=== PATIENT | female | born 1985 | race Caucasian/White ===

== ENCOUNTER 2016-12-28 07:47 | Inpatient (IN) | payer MEDICAID ==
[~2016-12-28] VITALS: Ht 170.2 cm; Wt 63.0 kg
[2016-12-28] MEDS ORDERED: MAALOX/HYOSCYAMINE/LIDOCAINE 45 ML BOTTLE ONE (08:13)
[2016-12-28] MEDS ORDERED: LORazepam 2 MG/ML, 1ML ONE (08:14)
[2016-12-28 08:28] LABS: BLOOD UREA NITROGEN 12 mg/dL (7-18)
[2016-12-28] MEDS ORDERED: PLEASE ENTER ALLERGIES MC SCH ×2 (08:30)
[2016-12-28] MEDS ORDERED: MAALOX/HYOSCYAMINE/LIDOCAINE 45 ML BOTTLE PO ONE (08:30)
[2016-12-28] MEDS ORDERED: LORazepam 2 MG/ML, 1ML IM PRN (08:30)
[2016-12-28 08:36] LABS: DIFF TOTAL CELLS COUNTED 100 CELL DIFF
[2016-12-28 08:44] LABS: LARGE PLATELETS 1+; POLYCHROMASIA 1+; VERIFY COUNTS? YES
[2016-12-28 08:48] LABS: IS PT STATUS REG ER OR PRE ER? YES
[2016-12-28] MEDS ORDERED: NS + 40MEQ KCL 1,000 ML IV SCH (09:00)
[2016-12-28] MEDS ORDERED: POTASSIUM CHLORIDE 20 MEQ TAB.ER.PRT PO ONE ×2 (09:00→11:30)
[2016-12-28 09:01] LABS: ICTOTEST NEGATIVE
[2016-12-28] MEDS ORDERED: POTASSIUM CHLORIDE 20 MEQ TAB.ER.PRT ONE (09:12)
[2016-12-28] MEDS ORDERED: CEFTRIAXONE PMX 1GM/50ML 50 ML IV ONE (09:30)
[2016-12-28] MEDS ORDERED: NS + 40MEQ KCL 1,000 ML IV ONE (09:37)
[2016-12-28] MEDS ORDERED: CEFTRIAXONE PMX 1GM/50ML 50 ML ONE (09:37)
[2016-12-28] MEDS ORDERED: POTASSIUM CHLORIDE 20 MEQ in SODIUM CHLORIDE 0.9% 1,000 ML IV ONE (09:54)
[2016-12-28] MEDS ORDERED: SODIUM CHLORIDE FLUSH 10ML SYR IVF PRN (10:00)
[2016-12-28] MEDS ORDERED: PERMETHRIN CRM 5%, 60GM TP SCH (10:00)
[2016-12-28] MEDS ORDERED: PIPERONYL BUTOXIDE/PYRETHRINS SHAMPOO ONE (10:10)
[2016-12-28] MEDS ORDERED: ONDANSETRON ODT 4 MG PO PRN (11:30)
[2016-12-28] MEDS: ENOXAPARIN 40 MG/0.4 ML SQ SCH ×2 (11:30→14:20)
[2016-12-28] MEDS ORDERED: ONDANSETRON 2MG/ML, 2ML IVP PRN (11:30)
[2016-12-28] MEDS: NICOTINE 7 MG/24 HR PATCH.TD24 TD SCH ×2 (11:30→14:20)
[2016-12-28] MEDS ORDERED: MAALOX/HYOSCYAMINE/LIDOCAINE 45 ML BOTTLE PO PRN (12:00)
[2016-12-28 12:19] VITALS: BP 113/63
[2016-12-28] MEDS ORDERED: OMNIPAQUE 350 MG/ML, 100ML BOTTLE ONE (12:36)
[2016-12-28 13:36] LABS: IS PT STATUS REG ER OR PRE ER? NO
[2016-12-28] MEDS: NS + 20MEQ KCL 1,000 ML IV SCH (14:20)
[2016-12-28 16:11] VITALS: BP 113/58
[2016-12-28] MEDS ORDERED: PERMETHRIN CRM 5%, 60GM TP ONE (16:15)
[2016-12-28] MEDS ORDERED: VANCOMYCIN PER PHARMACY MC PRN (16:30)
[2016-12-28] MEDS ORDERED: PHARMACOKINETIC MONITORING MC PRN (17:00)
[2016-12-28] MEDS ORDERED: PHARMACOKINETIC CONSULTATION MC ONE (17:00)
[2016-12-28 19:06] LABS: IS PT STATUS REG ER OR PRE ER? NO
[2016-12-28 20:01] VITALS: BP 115/66
[2016-12-28] MEDS: VANCOMYCIN 1,200 MG in SODIUM CHLORIDE 0.9% 250 ML IV SCH (20:18)
[2016-12-29] VITALS: BP 120/60
[2016-12-29] MEDS: NICOTINE 7 MG/24 HR PATCH.TD24 TD SCH ×2 (00:37→21:00)
[2016-12-29 01:40] LABS: DAU SCREEN DISCLAIMER
[2016-12-29 05:23] LABS: HEMOGLOBIN 10.3 g/dL (11.7-16.4)
[2016-12-29 05:30] LABS: BLOOD UREA NITROGEN 6 mg/dL (7-18)
[2016-12-29 05:34] LABS: ASPARTATE AMINO TRANSFERASE 16 U/L (15-37)
[2016-12-29 08:07] VITALS: BP 107/56
[2016-12-29] MEDS: VANCOMYCIN 1,200 MG in SODIUM CHLORIDE 0.9% 250 ML IV SCH ×2 (09:17→20:59)
[2016-12-29] MEDS ORDERED: LIDOCAINE 1%, 20ML ONE (09:40)
[2016-12-29] MEDS ORDERED: SODIUM BICARBONATE 4.2%, 5ML ONE (09:40)
[2016-12-29] MEDS ORDERED: POTASSIUM CHLORIDE 20 MEQ TAB.ER.PRT PO ONE (10:30)
[2016-12-29] MEDS: CEFTRIAXONE PMX 1GM/50ML 50 ML IV SCH (11:12)
[2016-12-29] MEDS: ASPIRIN 325 MG TABLET EC PO SCH (11:23)
[2016-12-29 13:16] VITALS: BP 118/71
[2016-12-29] MEDS: NS + 20MEQ KCL 1,000 ML IV SCH (13:38)
[2016-12-29 19:27] VITALS: BP 99/55
[2016-12-29] MEDS: HYDROcodone/APAP 5/325 TABLET PO PRN (21:19)
[2016-12-30 04:51] VITALS: BP 111/52
[2016-12-30 05:00] LABS: HEMOGLOBIN 9.8 g/dL (11.7-16.4)
[2016-12-30 05:07] LABS: BLOOD UREA NITROGEN 4 mg/dL (7-18)
[2016-12-30] MEDS: NS + 20MEQ KCL 1,000 ML IV SCH (06:12)
[2016-12-30] MEDS: ASPIRIN 325 MG TABLET EC PO SCH (06:12)
[2016-12-30 08:42] VITALS: BP 121/67
[2016-12-30] MEDS: VANCOMYCIN 1,200 MG in SODIUM CHLORIDE 0.9% 250 ML IV SCH ×2 (08:54→21:15)
[2016-12-30] MEDS: CEFTRIAXONE PMX 1GM/50ML 50 ML IV SCH (11:31)
[2016-12-30 14:01] VITALS: BP 128/70
[2016-12-30 19:37] VITALS: BP 131/65
[2016-12-30] MEDS: HYDROcodone/APAP 5/325 TABLET PO PRN (19:57)
[2016-12-31] MEDS: NS + 20MEQ KCL 1,000 ML IV SCH ×2 (00:34→15:16)
[2016-12-31] MEDS: MORPHINE SULFATE 4 MG/ML, 1ML IVPush PRN (00:35)
[2016-12-31 03:51] VITALS: BP 121/68
[2016-12-31] MEDS: HYDROcodone/APAP 5/325 TABLET PO PRN ×3 (04:04→20:11)
[2016-12-31] MEDS: ASPIRIN 325 MG TABLET EC PO SCH (04:04)
[2016-12-31 05:13] LABS: HEMOGLOBIN 9.5 g/dL (11.7-16.4)
[2016-12-31] MEDS: VANCOMYCIN 1,200 MG in SODIUM CHLORIDE 0.9% 250 ML IV SCH ×2 (08:19→20:11)
[2016-12-31 09:57] VITALS: BP 121/55
[2016-12-31] MEDS: CEFTRIAXONE PMX 1GM/50ML 50 ML IV SCH (11:02)
[2016-12-31] MEDS: NICOTINE 7 MG/24 HR PATCH.TD24 TD SCH (11:03)
[2016-12-31 17:29] VITALS: BP 128/72
[2016-12-31 20:00] VITALS: BP 131/58
[2017-01-01 02:00] VITALS: BP 126/75
[2017-01-01] MEDS: LORazepam 0.5MG TABLET PO PRN (02:28)
[2017-01-01] MEDS: NS + 20MEQ KCL 1,000 ML IV SCH ×2 (02:28→21:04)
[2017-01-01 05:08] LABS: HEMOGLOBIN 10.2 g/dL (11.7-16.4)
[2017-01-01 05:18] LABS: BLOOD UREA NITROGEN 5 mg/dL (7-18)
[2017-01-01 08:25] VITALS: BP 109/45
[2017-01-01] MEDS: VANCOMYCIN 1,200 MG in SODIUM CHLORIDE 0.9% 250 ML IV SCH ×2 (08:52→21:04)
[2017-01-01] MEDS ORDERED: PERMETHRIN CRM 5%, 60GM TP SCH (10:00)
[2017-01-01] MEDS: HYDROcodone/APAP 5/325 TABLET PO PRN (10:17)
[2017-01-01] MEDS: CEFTRIAXONE PMX 1GM/50ML 50 ML IV SCH (12:26)
[2017-01-01] MEDS: NICOTINE 7 MG/24 HR PATCH.TD24 TD SCH (12:27)
[2017-01-01] MEDS ORDERED: SCOPOLAMINE PATCH, 1.5MG PATCH.TD72 TD ONE (13:01)
[2017-01-01] MEDS ORDERED: SCOPOLAMINE PATCH, 1.5MG PATCH.TD72 TD STA (13:03)
[2017-01-01] MEDS ORDERED: FENTANYL PF 250 MCG/5ML ONE (13:06)
[2017-01-01] MEDS ORDERED: MIDAZOLAM 1 MG/ML, 5ML ONE (13:07)
[2017-01-01] MEDS ORDERED: BUPIVACAINE/PF-EPI 0.5% 1:200K ONE (13:46)
[2017-01-01] MEDS ORDERED: HYDROmorphone 1 MG/ML, 1ML IV PRN ×2 (14:00→14:30)
[2017-01-01] MEDS ORDERED: OXYcodone 5 MG/5 ML ORAL.SOL UDC PO PRN ×2 (14:00→14:30)
[2017-01-01] MEDS ORDERED: MIDAZOLAM 1 MG/ML, 2ML IV PRN ×2 (14:00→14:30)
[2017-01-01] MEDS ORDERED: PROMETHAZINE 25 MG/ML, 1ML IV PRN ×2 (14:00→14:30)
[2017-01-01] MEDS ORDERED: ACETAMINOPHEN 325 MG TABLET PO PRN ×2 (14:00→14:30)
[2017-01-01] MEDS ORDERED: FENTANYL PF 100 MCG/2ML IV PRN ×2 (14:00→14:30)
[2017-01-01] MEDS ORDERED: ONDANSETRON 2MG/ML, 2ML IVPush PRN ×2 (14:00→14:30)
[2017-01-01] MEDS ORDERED: KETOROLAC 30 MG/1 ML IV PRN ×2 (14:00→14:30)
[2017-01-01] MEDS ORDERED: BACITRACIN 50,000 UNIT ONE (14:05)
[2017-01-01] MEDS ORDERED: EPHEDRINE 50 MG/ML, 1ML IVPush PRN (14:30)
[2017-01-01] MEDS ORDERED: hydrALAzine 20 MG/ML, 1ML IV PRN (14:30)
[2017-01-01] MEDS ORDERED: METOPROLOL 1 MG/ML, 5ML IV PRN (14:30)
[2017-01-01] MEDS ORDERED: LABETALOL 5MG/ML, 20ML IV PRN (14:30)
[2017-01-01] MEDS ORDERED: MEPERIDINE/PF 25MG/0.5ML IVPush PRN (14:30)
[2017-01-01] MEDS ORDERED: PHENYLEPHRINE 10 MG/ML ONE (15:04)
[2017-01-01] MEDS ORDERED: NEOSTIGMINE 1 MG/ML, 10ML ONE (15:04)
[2017-01-01] MEDS ORDERED: ROCURONIUM 10 MG/ML ONE (15:04)
[2017-01-01] MEDS ORDERED: GLYCOPYRROLATE 0.2MG/1ML ONE (15:04)
[2017-01-01] MEDS ORDERED: PROPOFOL 10 MG/ML, 20ML ONE (15:04)
[2017-01-01] MEDS: MORPHINE SULFATE 4 MG/ML, 1ML IVPush PRN (17:12)
[2017-01-01 20:00] VITALS: BP 92/54
[2017-01-01] MEDS: ACETAMINOPHEN 325 MG TABLET PO PRN (21:23)
[2017-01-02 02:00] VITALS: BP 99/63
[2017-01-02] MEDS: HYDROcodone/APAP 5/325 TABLET PO PRN ×3 (06:07→21:47)
[2017-01-02 06:08] LABS: HEMOGLOBIN 10.1 g/dL (11.7-16.4)
[2017-01-02 06:13] LABS: ASPARTATE AMINO TRANSFERASE 11 U/L (15-37); BLOOD UREA NITROGEN 6 mg/dL (7-18)
[2017-01-02 07:59] VITALS: BP 85/46
[2017-01-02] MEDS: VANCOMYCIN 1,200 MG in SODIUM CHLORIDE 0.9% 250 ML IV SCH ×2 (08:02→21:55)
[2017-01-02] MEDS: NICOTINE 7 MG/24 HR PATCH.TD24 TD SCH (10:46)
[2017-01-02] MEDS: CEFTRIAXONE PMX 1GM/50ML 50 ML IV SCH (10:46)
[2017-01-02 12:55] VITALS: BP 92/52
[2017-01-02] MEDS: NS + 20MEQ KCL 1,000 ML IV SCH (13:05)
[2017-01-02] MEDS: MORPHINE SULFATE 4 MG/ML, 1ML IVPush PRN (13:27)
[2017-01-02 19:45] VITALS: BP 110/66
[2017-01-02] MEDS ORDERED: OMNIPAQUE 350 MG/ML, 100ML BOTTLE ONE (21:46)
[2017-01-02 23:44] VITALS: BP 107/64
[2017-01-03] MEDS: DOCUSATE 100 MG CAPSULE PO PRN ×2 (00:18→20:43)
[2017-01-03 03:11] VITALS: BP 99/53
[2017-01-03] MEDS: NS + 20MEQ KCL 1,000 ML IV SCH ×2 (03:14→20:40)
[2017-01-03] MEDS: HYDROcodone/APAP 5/325 TABLET PO PRN ×4 (03:47→20:40)
[2017-01-03 05:45] LABS: HEMOGLOBIN 8.8 g/dL (11.7-16.4)
[2017-01-03 05:56] LABS: BLOOD UREA NITROGEN 6 mg/dL (7-18)
[2017-01-03 06:02] LABS: ASPARTATE AMINO TRANSFERASE 12 U/L (15-37)
[2017-01-03 07:37] VITALS: BP 104/56
[2017-01-03] MEDS ORDERED: HYDROcodone/APAP 5/325 TABLET ONE (07:45)
[2017-01-03] MEDS: VANCOMYCIN 1,200 MG in SODIUM CHLORIDE 0.9% 250 ML IV SCH ×2 (10:14→23:06)
[2017-01-03] MEDS: CEFTRIAXONE PMX 1GM/50ML 50 ML IV SCH (12:03)
[2017-01-03] MEDS: NICOTINE 7 MG/24 HR PATCH.TD24 TD SCH (12:04)
[2017-01-03 14:00] VITALS: BP 103/54
[2017-01-03 18:53] VITALS: BP 110/65
[2017-01-04] MEDS: HYDROcodone/APAP 5/325 TABLET PO PRN ×5 (00:44→21:49)
[2017-01-04 01:06] VITALS: BP 112/67
[2017-01-04 07:04] LABS: HEMOGLOBIN 9.4 g/dL (11.7-16.4)
[2017-01-04 07:12] VITALS: BP 108/68
[2017-01-04 07:22] VITALS: BP 123/75
[2017-01-04 08:50] VITALS: BP_SYST 108; BP_SYST 123; BP_DIAS 63; BP_DIAS 75
[2017-01-04] MEDS: VANCOMYCIN 1,200 MG in SODIUM CHLORIDE 0.9% 250 ML IV SCH ×2 (10:06→21:48)
[2017-01-04] MEDS: NS + 20MEQ KCL 1,000 ML IV SCH (10:06)
[2017-01-04] MEDS: NICOTINE 7 MG/24 HR PATCH.TD24 TD SCH (11:02)
[2017-01-04] MEDS: LORazepam 0.5MG TABLET PO PRN ×2 (11:02→21:50)
[2017-01-04] MEDS: DOCUSATE 100 MG CAPSULE PO PRN ×2 (11:06→21:50)
[2017-01-04] MEDS: CEFTRIAXONE PMX 1GM/50ML 50 ML IV SCH (12:47)
[2017-01-04 13:45] VITALS: BP 106/60
[2017-01-04 22:41] VITALS: BP 95/52
[2017-01-05] MEDS: HYDROcodone/APAP 5/325 TABLET PO PRN ×4 (02:34→21:21)
[2017-01-05 02:37] VITALS: BP 102/58
[2017-01-05] MEDS: NS + 20MEQ KCL 1,000 ML IV SCH ×2 (02:54→12:30)
[2017-01-05 07:18] VITALS: BP 100/63
[2017-01-05] MEDS: LORazepam 0.5MG TABLET PO PRN ×2 (09:22→21:21)
[2017-01-05] MEDS: VANCOMYCIN 1,200 MG in SODIUM CHLORIDE 0.9% 250 ML IV SCH ×2 (09:58→22:49)
[2017-01-05] MEDS: DOCUSATE 100 MG CAPSULE PO PRN (12:30)
[2017-01-05] MEDS: CEFTRIAXONE PMX 1GM/50ML 50 ML IV SCH (12:30)
[2017-01-05] MEDS: NICOTINE 7 MG/24 HR PATCH.TD24 TD SCH (12:30)
[2017-01-05 13:05] VITALS: BP 91/54
[2017-01-05] MEDS: MORPHINE SULFATE 4 MG/ML, 1ML IVPush PRN (13:45)
[2017-01-05 20:22] VITALS: BP 91/50
[2017-01-06] MEDS: NS + 20MEQ KCL 1,000 ML IV SCH ×2 (00:51→22:18)
[2017-01-06 02:42] VITALS: BP 101/56
[2017-01-06 06:43] VITALS: BP 130/66
[2017-01-06] MEDS: VANCOMYCIN 1,200 MG in SODIUM CHLORIDE 0.9% 250 ML IV SCH (10:07)
[2017-01-06] MEDS: HYDROcodone/APAP 5/325 TABLET PO PRN ×3 (10:11→22:41)
[2017-01-06 13:31] VITALS: BP 99/49
[2017-01-06] MEDS: CEFTRIAXONE PMX 1GM/50ML 50 ML IV SCH (14:15)
[2017-01-06] MEDS: NICOTINE 7 MG/24 HR PATCH.TD24 TD SCH (14:15)
[2017-01-06 20:24] VITALS: BP 108/51
[2017-01-07] MEDS: VANCOMYCIN 1,200 MG in SODIUM CHLORIDE 0.9% 250 ML IV SCH ×2 (01:54→14:25)
[2017-01-07 02:46] VITALS: BP_SYST 85; BP_SYST 86; BP_DIAS 42
[2017-01-07 09:00] VITALS: BP 98/54
[2017-01-07] MEDS: MORPHINE SULFATE 4 MG/ML, 1ML IVPush PRN (09:20)
[2017-01-07] MEDS ORDERED: SODIUM CHLORIDE 0.9%, 500ML IVBOLUS ONE (09:30)
[2017-01-07 09:50] LABS: BLOOD UREA NITROGEN 6 mg/dL (7-18)
[2017-01-07 09:54] LABS: ASPARTATE AMINO TRANSFERASE 15 U/L (15-37)
[2017-01-07] MEDS ORDERED: PROMETHAZINE 25 MG/ML, 1ML IM ONE (10:30)
[2017-01-07] MEDS ORDERED: LORazepam 2 MG/ML, 1ML IVPush ONE (10:30)
[2017-01-07] MEDS: NICOTINE 7 MG/24 HR PATCH.TD24 TD SCH (11:45)
[2017-01-07] MEDS: CEFTRIAXONE PMX 1GM/50ML 50 ML IV SCH (13:20)
[2017-01-07] MEDS: DOCUSATE 100 MG CAPSULE PO PRN (14:27)
[2017-01-07 15:55] VITALS: BP 116/66
[2017-01-07] MEDS: NS + 20MEQ KCL 1,000 ML IV SCH (19:53)
[2017-01-07] MEDS: HYDROcodone/APAP 5/325 TABLET PO PRN (19:54)
[2017-01-07 20:20] VITALS: BP 104/59
[2017-01-08] MEDS: VANCOMYCIN 1,200 MG in SODIUM CHLORIDE 0.9% 250 ML IV SCH ×2 (02:06→19:59)
[2017-01-08 02:30] VITALS: BP 101/63
[2017-01-08 05:29] LABS: HEMOGLOBIN 10.3 g/dL (11.7-16.4)
[2017-01-08 05:46] LABS: BLOOD UREA NITROGEN 7 mg/dL (7-18)
[2017-01-08 07:51] VITALS: BP 107/56
[2017-01-08] MEDS: HYDROcodone/APAP 5/325 TABLET PO PRN ×2 (08:54→22:29)
[2017-01-08] MEDS: LORazepam 0.5MG TABLET PO PRN ×2 (13:21→22:29)
[2017-01-08] MEDS: MORPHINE SULFATE 4 MG/ML, 1ML IVPush PRN ×3 (13:21→22:29)
[2017-01-08] MEDS: CEFTRIAXONE PMX 1GM/50ML 50 ML IV SCH (13:21)
[2017-01-08] MEDS: NICOTINE 7 MG/24 HR PATCH.TD24 TD SCH (13:21)
[2017-01-08] MEDS: NS + 20MEQ KCL 1,000 ML IV SCH (13:22)
[2017-01-08 13:56] VITALS: BP 112/66
[2017-01-08] MEDS ORDERED: LORazepam 2 MG/ML, 1ML IVPush ONE ×2 (14:00→17:00)
[2017-01-08 19:00] VITALS: BP 110/72
[2017-01-08] MEDS ORDERED: GADOBUTROL 7.5 MMOL/7.5 ML PFS ONE (19:56)
[2017-01-09 01:00] VITALS: BP 73/42
[2017-01-09] MEDS: VANCOMYCIN 1,200 MG in SODIUM CHLORIDE 0.9% 250 ML IV SCH ×2 (08:06→20:13)
[2017-01-09 08:12] VITALS: BP 108/55
[2017-01-09] MEDS: MORPHINE SULFATE 4 MG/ML, 1ML IVPush PRN (08:39)
[2017-01-09] MEDS: LORazepam 0.5MG TABLET PO PRN (08:40)
[2017-01-09] MEDS ORDERED: BISACODYL 10 MG SUPP PR PRN (11:00)
[2017-01-09] MEDS: PIPERACILLIN/TAZO/PMX 3.375GM 50 ML IV SCH ×2 (13:04→18:43)
[2017-01-09 14:30] VITALS: BP 115/64
[2017-01-09] MEDS: NICOTINE 7 MG/24 HR PATCH.TD24 TD SCH (16:00)
[2017-01-09] MEDS: HYDROcodone/APAP 5/325 TABLET PO PRN (17:22)
[2017-01-09] MEDS: DOCUSATE 100 MG CAPSULE PO PRN (18:43)
[2017-01-09 21:30] VITALS: BP 125/75
[2017-01-09] MEDS: NS + 20MEQ KCL 1,000 ML IV SCH (23:57)
[2017-01-10] MEDS: PIPERACILLIN/TAZO/PMX 3.375GM 50 ML IV SCH ×4 (01:44→18:25)
[2017-01-10 02:14] VITALS: BP 107/62
[2017-01-10 05:21] LABS: HEMOGLOBIN 10.2 g/dL (11.7-16.4)
[2017-01-10 05:30] LABS: BLOOD UREA NITROGEN 9 mg/dL (7-18); C-REACTIVE PROTEIN, QUANT 0.15 mg/dL (0.02-0.49)
[2017-01-10] MEDS: VANCOMYCIN 1,200 MG in SODIUM CHLORIDE 0.9% 250 ML IV SCH ×2 (08:10→20:00)
[2017-01-10] MEDS: MORPHINE SULFATE 4 MG/ML, 1ML IVPush PRN (08:20)
[2017-01-10 08:22] VITALS: BP 108/62
[2017-01-10] MEDS ORDERED: FENTANYL PF 100 MCG/2ML ONE (14:16)
[2017-01-10] MEDS ORDERED: NALOXONE 1 MG/ML, 2ML ONE (14:17)
[2017-01-10] MEDS ORDERED: MIDAZOLAM 1 MG/ML, 5ML ONE (14:17)
[2017-01-10] MEDS ORDERED: FLUMAZENIL 0.1 MG/1 ML, 5ML ONE (14:17)
[2017-01-10] MEDS ORDERED: LIDOCAINE 1%, 20ML ONE (14:18)
[2017-01-10 15:40] VITALS: BP 118/68
[2017-01-10] MEDS: NICOTINE 7 MG/24 HR PATCH.TD24 TD SCH (16:33)
[2017-01-10 19:20] VITALS: BP 107/71
[2017-01-10] MEDS: ACETAMINOPHEN 325 MG TABLET PO PRN (20:09)
[2017-01-10] MEDS: DOCUSATE 100 MG CAPSULE PO PRN (20:09)
[2017-01-10] MEDS: NS + 20MEQ KCL 1,000 ML IV SCH (22:37)
[2017-01-11 01:10] VITALS: BP 116/58
[2017-01-11] MEDS: PIPERACILLIN/TAZO/PMX 3.375GM 50 ML IV SCH ×5 (01:12→21:19)
[2017-01-11] MEDS: HYDROcodone/APAP 5/325 TABLET PO PRN ×2 (01:12→11:10)
[2017-01-11 07:39] VITALS: BP 97/61
[2017-01-11] MEDS: VANCOMYCIN 1,200 MG in SODIUM CHLORIDE 0.9% 250 ML IV SCH ×2 (08:14→21:21)
[2017-01-11] MEDS ORDERED: [UNRECOGNIZED DRUG - REMARK] XX PRN (11:00)
[2017-01-11 12:02] LABS: HEMOGLOBIN 10.9 g/dL (11.7-16.4)
[2017-01-11 12:08] LABS: BLOOD UREA NITROGEN 8 mg/dL (7-18); C-REACTIVE PROTEIN, QUANT 0.21 mg/dL (0.02-0.49)
[2017-01-11 12:11] LABS: ASPARTATE AMINO TRANSFERASE 14 U/L (15-37)
[2017-01-11] MEDS: POTASSIUM CHLORIDE 20 MEQ TAB.ER.PRT PO SCH ×2 (12:51→15:33)
[2017-01-11] MEDS ORDERED: VANCOMYCIN 1,100 MG in SODIUM CHLORIDE 0.9% 250 ML IV SCH (14:00)
[2017-01-11 15:00] VITALS: BP 93/53
[2017-01-11] MEDS: NS + 20MEQ KCL 1,000 ML IV SCH (15:33)
[2017-01-11] MEDS: NICOTINE 7 MG/24 HR PATCH.TD24 TD SCH (15:35)
[2017-01-11 18:49] VITALS: BP 117/57
[2017-01-12] MEDS: PIPERACILLIN/TAZO/PMX 3.375GM 50 ML IV SCH ×4 (01:06→18:32)
[2017-01-12 01:12] VITALS: BP 92/49
[2017-01-12] MEDS ORDERED: CATHFLO-ALTEPLASE 2 MG/2 ML CATHFLUSH ONE ×2 (04:30→06:30)
[2017-01-12] MEDS: NS + 20MEQ KCL 1,000 ML IV SCH (06:48)
[2017-01-12 07:15] LABS: BLOOD UREA NITROGEN 7 mg/dL (7-18)
[2017-01-12 07:17] LABS: ASPARTATE AMINO TRANSFERASE 15 U/L (15-37); C-REACTIVE PROTEIN, QUANT 0.12 mg/dL (0.02-0.49)
[2017-01-12 07:27] VITALS: BP 114/67
[2017-01-12] MEDS: VANCOMYCIN 1,200 MG in SODIUM CHLORIDE 0.9% 250 ML IV SCH ×2 (08:12→20:13)
[2017-01-12] MEDS: HYDROcodone/APAP 5/325 TABLET PO PRN ×3 (08:17→22:00)
[2017-01-12 09:13] LABS: HEMOGLOBIN 10.7 g/dL (11.7-16.4)
[2017-01-12 12:40] VITALS: BP 111/70
[2017-01-12] MEDS: NICOTINE 7 MG/24 HR PATCH.TD24 TD SCH (15:56)
[2017-01-12 19:27] VITALS: BP 110/69
[2017-01-13] MEDS: PIPERACILLIN/TAZO/PMX 3.375GM 50 ML IV SCH ×4 (01:39→19:28)
[2017-01-13] MEDS: NS + 20MEQ KCL 1,000 ML IV SCH ×2 (01:39→21:23)
[2017-01-13 03:29] VITALS: BP 92/56
[2017-01-13 07:05] VITALS: BP 118/67
[2017-01-13] MEDS: VANCOMYCIN 1,200 MG in SODIUM CHLORIDE 0.9% 250 ML IV SCH ×2 (08:06→21:23)
[2017-01-13] MEDS: HYDROcodone/APAP 5/325 TABLET PO PRN ×2 (10:25→15:34)
[2017-01-13 13:37] VITALS: BP 116/55
[2017-01-13] MEDS: NICOTINE 7 MG/24 HR PATCH.TD24 TD SCH (15:34)
[2017-01-13 19:58] VITALS: BP 107/53
[2017-01-13] MEDS: ACETAMINOPHEN 325 MG TABLET PO PRN (21:32)
[2017-01-14] MEDS: PIPERACILLIN/TAZO/PMX 3.375GM 50 ML IV SCH ×4 (00:45→18:38)
[2017-01-14 01:58] VITALS: BP 112/66
[2017-01-14] MEDS: VANCOMYCIN 1,200 MG in SODIUM CHLORIDE 0.9% 250 ML IV SCH ×2 (09:19→21:05)
[2017-01-14 09:23] VITALS: BP 120/70
[2017-01-14] MEDS: NS + 20MEQ KCL 1,000 ML IV SCH (10:20)
[2017-01-14 12:03] LABS: HCG UR OBC PASS
[2017-01-14] MEDS ORDERED: BACITRACIN 50,000 UNIT ONE ×2 (13:36→14:59)
[2017-01-14] MEDS ORDERED: THROMBIN 5,000 UNIT VIAL TP ONE (13:36)
[2017-01-14] MEDS ORDERED: BACITRACIN OINT 500U/GM, 15 GM ONE (13:36)
[2017-01-14] MEDS ORDERED: BUPIVACAINE/PF-EPI 0.5% 1:200K ONE (13:36)
[2017-01-14] MEDS ORDERED: FENTANYL PF 250 MCG/5ML ONE (14:34)
[2017-01-14] MEDS ORDERED: MIDAZOLAM 1 MG/ML, 2ML ONE ×2 (14:34→16:07)
[2017-01-14] MEDS ORDERED: ROCURONIUM 10 MG/ML ONE (14:37)
[2017-01-14] MEDS ORDERED: ONDANSETRON 2MG/ML, 2ML ONE (14:37)
[2017-01-14] MEDS ORDERED: EPHEDRINE 50 MG/ML, 1ML ONE (14:37)
[2017-01-14] MEDS ORDERED: PROPOFOL 10 MG/ML, 20ML ONE (14:37)
[2017-01-14] MEDS ORDERED: PHENYLEPHRINE 10 MG/ML ONE (14:37)
[2017-01-14] MEDS ORDERED: DEXAMETHASONE 4 MG/ML, 1ML ONE (14:37)
[2017-01-14] MEDS ORDERED: CEFAZOLIN 1,000 MG ONE (14:37)
[2017-01-14] MEDS ORDERED: SUCCINYLCHOLINE 20 MG/ML, 10ML ONE (14:37)
[2017-01-14] MEDS ORDERED: GLYCOPYRROLATE 0.2MG/1ML ONE (14:37)
[2017-01-14] MEDS ORDERED: hydrALAzine 20 MG/ML, 1ML IV PRN (15:30)
[2017-01-14] MEDS ORDERED: ONDANSETRON 2MG/ML, 2ML IVPush PRN (15:30)
[2017-01-14] MEDS ORDERED: MEPERIDINE/PF 25MG/0.5ML IVPush PRN (15:30)
[2017-01-14] MEDS ORDERED: OXYcodone 5 MG/5 ML ORAL.SOL UDC PO PRN ×2 (15:30→19:00)
[2017-01-14] MEDS ORDERED: LABETALOL 5MG/ML, 20ML IV PRN (15:30)
[2017-01-14] MEDS ORDERED: PROMETHAZINE 25 MG/ML, 1ML IV PRN (15:30)
[2017-01-14] MEDS ORDERED: METOCLOPRAMIDE 5 MG/ML, 2ML IV PRN (15:30)
[2017-01-14] MEDS ORDERED: ACETAMINOPHEN 325 MG TABLET PO PRN (15:30)
[2017-01-14] MEDS ORDERED: FENTANYL PF 100 MCG/2ML IV PRN (15:30)
[2017-01-14] MEDS ORDERED: MIDAZOLAM 1 MG/ML, 2ML IV PRN (15:30)
[2017-01-14] MEDS ORDERED: HYDROmorphone 2 MG/ML, 1ML ONE (16:07)
[2017-01-14] MEDS ORDERED: OXYcodone 5 MG/5 ML ORAL.SOL UDC ONE (16:07)
[2017-01-14] MEDS: HYDROmorphone 1 MG/ML, 1ML IV PRN ×3 (16:16→17:10)
[2017-01-14] MEDS: NICOTINE 7 MG/24 HR PATCH.TD24 TD SCH (18:38)
[2017-01-14] MEDS ORDERED: ONDANSETRON 2MG/ML, 2ML IV PRN (19:00)
[2017-01-14 20:10] VITALS: BP 96/62
[2017-01-14] MEDS: POTASSIUM CHLORIDE 40 MEQ in SODIUM CHLORIDE 0.9% 1,000 ML IV SCH (21:05)
[2017-01-15 00:16] VITALS: BP 98/58
[2017-01-15] MEDS: PIPERACILLIN/TAZO/PMX 3.375GM 50 ML IV SCH ×4 (00:51→20:32)
[2017-01-15] MEDS ORDERED: CATHFLO-ALTEPLASE 2 MG/2 ML CATHFLUSH ONE (06:30)
[2017-01-15 07:13] LABS: HEMOGLOBIN 7.6 g/dL (11.7-16.4)
[2017-01-15 07:26] LABS: BLOOD UREA NITROGEN 9 mg/dL (7-18)
[2017-01-15] MEDS: VANCOMYCIN 1,200 MG in SODIUM CHLORIDE 0.9% 250 ML IV SCH ×2 (09:33→22:23)
[2017-01-15 09:55] VITALS: BP 92/55
[2017-01-15 14:00] VITALS: BP 102/61
[2017-01-15] MEDS: POTASSIUM CHLORIDE 40 MEQ in SODIUM CHLORIDE 0.9% 1,000 ML IV SCH (14:16)
[2017-01-15] MEDS: NICOTINE 7 MG/24 HR PATCH.TD24 TD SCH (17:07)
[2017-01-15] MEDS: HYDROcodone/APAP 5/325 TABLET PO PRN (18:12)
[2017-01-15 19:50] VITALS: BP 92/52
[2017-01-16] MEDS: PIPERACILLIN/TAZO/PMX 3.375GM 50 ML IV SCH ×4 (02:24→22:29)
[2017-01-16 03:24] VITALS: BP 105/65
[2017-01-16] MEDS ORDERED: CATHFLO-ALTEPLASE 2 MG/2 ML CATHFLUSH ONE ×2 (05:00)
[2017-01-16 07:13] VITALS: BP 95/56
[2017-01-16 07:22] LABS: HEMOGLOBIN 8.4 g/dL (11.7-16.4)
[2017-01-16] MEDS: POTASSIUM CHLORIDE 40 MEQ in SODIUM CHLORIDE 0.9% 1,000 ML IV SCH ×2 (07:34→22:31)
[2017-01-16] MEDS: HYDROcodone/APAP 5/325 TABLET PO PRN ×3 (08:53→18:18)
[2017-01-16] MEDS: LORazepam 0.5MG TABLET PO PRN ×2 (10:18→16:27)
[2017-01-16] MEDS: MORPHINE SULFATE 4 MG/ML, 1ML IVPush PRN ×2 (10:18→14:52)
[2017-01-16] MEDS: VANCOMYCIN 1,200 MG in SODIUM CHLORIDE 0.9% 250 ML IV SCH ×2 (10:19→23:34)
[2017-01-16 13:45] VITALS: BP 98/63
[2017-01-16] MEDS: NICOTINE 7 MG/24 HR PATCH.TD24 TD SCH (16:27)
[2017-01-16 19:06] VITALS: BP 94/60
[2017-01-17 02:32] VITALS: BP 89/74
[2017-01-17] MEDS: PIPERACILLIN/TAZO/PMX 3.375GM 50 ML IV SCH ×4 (05:07→23:13)
[2017-01-17] MEDS: POTASSIUM CHLORIDE 40 MEQ in SODIUM CHLORIDE 0.9% 1,000 ML IV SCH ×2 (06:42→19:23)
[2017-01-17 07:51] VITALS: BP 109/55
[2017-01-17 13:36] VITALS: BP 111/69
[2017-01-17] MEDS: VANCOMYCIN 1,000 MG in SODIUM CHLORIDE 0.9% 250 ML IV SCH (14:47)
[2017-01-17] MEDS: NICOTINE 7 MG/24 HR PATCH.TD24 TD SCH (17:02)
[2017-01-17 18:53] VITALS: BP 115/74
[2017-01-17] MEDS: HYDROcodone/APAP 5/325 TABLET PO PRN (19:33)
[2017-01-18 01:44] VITALS: BP 109/69
[2017-01-18] MEDS: VANCOMYCIN 1,000 MG in SODIUM CHLORIDE 0.9% 250 ML IV SCH ×2 (02:33→14:34)
[2017-01-18] MEDS: PIPERACILLIN/TAZO/PMX 3.375GM 50 ML IV SCH ×4 (04:58→23:32)
[2017-01-18 09:30] VITALS: BP 111/64
[2017-01-18] MEDS: POTASSIUM CHLORIDE 40 MEQ in SODIUM CHLORIDE 0.9% 1,000 ML IV SCH (09:54)
[2017-01-18] MEDS: HYDROcodone/APAP 5/325 TABLET PO PRN ×2 (14:47→20:14)
[2017-01-18 15:16] VITALS: BP 111/75
[2017-01-18] MEDS: NICOTINE 7 MG/24 HR PATCH.TD24 TD SCH (17:39)
[2017-01-18 20:47] VITALS: BP 115/72
[2017-01-19 04:19] VITALS: BP 110/59
[2017-01-19 06:08] LABS: BLOOD UREA NITROGEN 7 mg/dL (7-18)
[2017-01-19] MEDS: PIPERACILLIN/TAZO/PMX 3.375GM 50 ML IV SCH ×4 (06:14→23:03)
[2017-01-19 06:20] LABS: ASPARTATE AMINO TRANSFERASE 15 U/L (15-37)
[2017-01-19 06:33] LABS: HEMOGLOBIN 7.3 g/dL (11.7-16.4)
[2017-01-19 07:36] VITALS: BP 108/66
[2017-01-19] MEDS: VANCOMYCIN 1,200 MG in SODIUM CHLORIDE 0.9% 250 ML IV SCH (08:32)
[2017-01-19] MEDS: MORPHINE SULFATE 4 MG/ML, 1ML IVPush PRN (11:14)
[2017-01-19 14:23] VITALS: BP 103/62
[2017-01-19] MEDS: NICOTINE 7 MG/24 HR PATCH.TD24 TD SCH (15:37)
[2017-01-19 19:03] VITALS: BP 108/74
[2017-01-19] MEDS: HYDROcodone/APAP 5/325 TABLET PO PRN (20:17)
[2017-01-19] MEDS: ACETAMINOPHEN 325 MG TABLET PO PRN (23:08)
[2017-01-20 03:08] VITALS: BP 95/50
[2017-01-20] MEDS: PIPERACILLIN/TAZO/PMX 3.375GM 50 ML IV SCH ×3 (04:50→20:15)
[2017-01-20 06:54] LABS: BLOOD UREA NITROGEN 8 mg/dL (7-18)
[2017-01-20 07:55] VITALS: BP 119/67
[2017-01-20] MEDS ORDERED: POTASSIUM CHLORIDE 20 MEQ TAB.ER.PRT PO ONE (08:00)
[2017-01-20] MEDS: VANCOMYCIN 1,200 MG in SODIUM CHLORIDE 0.9% 250 ML IV SCH (09:00)
[2017-01-20] MEDS ORDERED: DAPTOMYCIN 250 MG in SODIUM CHLORIDE 0.9% 100 ML IV SCH (11:00)
[2017-01-20] MEDS ORDERED: ZIPRASIDONE 20MG CAPSULE PO PRN (12:30)
[2017-01-20] MEDS ORDERED: ZIPRASIDONE 20 MG INJ IM PRN (12:30)
[2017-01-20] MEDS: FERROUS SULFATE 325 MG TABLET PO SCH ×2 (13:24→20:15)
[2017-01-20] MEDS: NICOTINE 7 MG/24 HR PATCH.TD24 TD SCH (13:24)
[2017-01-20 15:08] VITALS: BP 102/63
[2017-01-20 21:00] VITALS: BP 117/82
[2017-01-21] MEDS: HYDROcodone/APAP 5/325 TABLET PO PRN ×2 (00:17→09:56)
[2017-01-21] MEDS: PIPERACILLIN/TAZO/PMX 3.375GM 50 ML IV SCH ×4 (02:08→23:45)
[2017-01-21 02:50] VITALS: BP 107/66
[2017-01-21 05:40] LABS: HEMOGLOBIN 7.4 g/dL (11.7-16.4)
[2017-01-21 05:49] LABS: BLOOD UREA NITROGEN 8 mg/dL (7-18)
[2017-01-21 05:55] LABS: ASPARTATE AMINO TRANSFERASE 12 U/L (15-37)
[2017-01-21] MEDS: FERROUS SULFATE 325 MG TABLET PO SCH ×3 (07:54→20:31)
[2017-01-21 08:06] VITALS: BP 103/65
[2017-01-21 13:43] VITALS: BP 121/75
[2017-01-21] MEDS: DAPTOMYCIN 250 MG in SODIUM CHLORIDE 0.9% 100 ML IV SCH (15:25)
[2017-01-21] MEDS: NICOTINE 7 MG/24 HR PATCH.TD24 TD SCH (17:05)
[2017-01-21 22:24] VITALS: BP 130/72
[2017-01-22 04:10] VITALS: BP 90/54
[2017-01-22] MEDS: PIPERACILLIN/TAZO/PMX 3.375GM 50 ML IV SCH ×4 (05:04→23:00)
[2017-01-22 06:56] VITALS: BP 96/61
[2017-01-22 08:40] LABS: HEMOGLOBIN 8.1 g/dL (11.7-16.4)
[2017-01-22 08:55] LABS: BLOOD UREA NITROGEN 9 mg/dL (7-18)
[2017-01-22] MEDS: FERROUS SULFATE 325 MG TABLET PO SCH ×3 (09:16→17:44)
[2017-01-22] MEDS ORDERED: POTASSIUM CHLORIDE 20 MEQ TAB.ER.PRT PO ONE (10:00)
[2017-01-22] MEDS: DAPTOMYCIN 250 MG in SODIUM CHLORIDE 0.9% 100 ML IV SCH (12:08)
[2017-01-22 14:07] VITALS: BP 108/69
[2017-01-22] MEDS: NICOTINE 7 MG/24 HR PATCH.TD24 TD SCH (17:44)
[2017-01-22 21:35] VITALS: BP 115/74
[2017-01-23 02:50] VITALS: BP 117/65
[2017-01-23 04:46] LABS: BLOOD UREA NITROGEN 9 mg/dL (7-18)
[2017-01-23] MEDS: PIPERACILLIN/TAZO/PMX 3.375GM 50 ML IV SCH (05:18)
[2017-01-23] MEDS ORDERED: MAGNESIUM SULFATE PMX 4GM/100M 100 ML IV ONE (07:30)
[2017-01-23] MEDS: POTASSIUM CHLORIDE 20 MEQ TAB.ER.PRT PO SCH ×2 (09:12→16:16)
[2017-01-23] MEDS: FERROUS SULFATE 325 MG TABLET PO SCH ×3 (09:12→16:15)
[2017-01-23 09:22] VITALS: BP 122/68
[2017-01-23 15:17] VITALS: BP 117/77
[2017-01-23] MEDS: NICOTINE 7 MG/24 HR PATCH.TD24 TD SCH (16:15)
[2017-01-23 20:30] VITALS: BP 117/80
[2017-01-24] MEDS: POTASSIUM CHLORIDE 20 MEQ TAB.ER.PRT PO SCH ×2 (00:40→17:22)
[2017-01-24 02:20] VITALS: BP 135/91
[2017-01-24] MEDS: ACETAMINOPHEN 325 MG TABLET PO PRN (02:31)
[2017-01-24] MEDS ORDERED: CATHFLO-ALTEPLASE 2 MG/2 ML CATHFLUSH ONE ×2 (05:30)
[2017-01-24 06:17] LABS: BLOOD UREA NITROGEN 8 mg/dL (7-18)
[2017-01-24 06:24] LABS: HEMOGLOBIN 8.1 g/dL (11.7-16.4)
[2017-01-24] MEDS: FERROUS SULFATE 325 MG TABLET PO SCH ×3 (07:45→17:22)
[2017-01-24] MEDS: HYDROcodone/APAP 5/325 TABLET PO PRN ×2 (07:49→22:07)
[2017-01-24 08:50] VITALS: BP 112/73
[2017-01-24 14:40] VITALS: BP 114/78
[2017-01-24] MEDS: NICOTINE 7 MG/24 HR PATCH.TD24 TD SCH (17:22)
[2017-01-24 19:53] VITALS: BP 126/81
[2017-01-25 01:16] VITALS: BP 124/79
[2017-01-25] MEDS ORDERED: CATHFLO-ALTEPLASE 2 MG/2 ML CATHFLUSH ONE ×2 (05:00→06:00)
[2017-01-25 05:12] LABS: BLOOD UREA NITROGEN 11 mg/dL (7-18)
[2017-01-25 07:07] VITALS: BP 121/77
[2017-01-25] MEDS: POTASSIUM CHLORIDE 20 MEQ TAB.ER.PRT PO SCH ×2 (07:53→17:18)
[2017-01-25] MEDS: FERROUS SULFATE 325 MG TABLET PO SCH ×3 (07:53→17:18)
[2017-01-25 14:18] VITALS: BP 124/79
[2017-01-25] MEDS: NICOTINE 7 MG/24 HR PATCH.TD24 TD SCH (15:35)
[2017-01-25 20:04] VITALS: BP 123/73
[2017-01-25 22:19] LABS: HEMOGLOBIN 9.7 g/dL (11.7-16.4)
[2017-01-25] MEDS: ACETAMINOPHEN 325 MG TABLET PO PRN (23:33)
[2017-01-26 01:48] VITALS: BP 106/69
[2017-01-26 04:27] VITALS: BP 105/73
[2017-01-26] MEDS ORDERED: OMNIPAQUE 350 MG/ML, 100ML BOTTLE ONE (04:39)
[2017-01-26 07:44] VITALS: BP 114/75
[2017-01-26] MEDS: FERROUS SULFATE 325 MG TABLET PO SCH ×3 (08:03→17:02)
[2017-01-26] MEDS: POTASSIUM CHLORIDE 20 MEQ TAB.ER.PRT PO SCH ×2 (08:03→17:02)
[2017-01-26] MEDS: HYDROcodone/APAP 5/325 TABLET PO PRN ×2 (08:10→21:42)
[2017-01-26] MEDS: MORPHINE SULFATE 4 MG/ML, 1ML IVPush PRN (10:37)
[2017-01-26 14:19] VITALS: BP 109/71
[2017-01-26] MEDS: NICOTINE 7 MG/24 HR PATCH.TD24 TD SCH (17:02)
[2017-01-26 19:32] VITALS: BP 110/68
[2017-01-27 02:34] VITALS: BP 103/64
[2017-01-27 07:20] LABS: HEMOGLOBIN 8.7 g/dL (11.7-16.4)
[2017-01-27 07:39] LABS: DIFF TOTAL CELLS COUNTED 100 CELL DIFF
[2017-01-27 07:42] LABS: VERIFY COUNTS? YES
[2017-01-27 07:43] LABS: ANISOCYTOSIS 1+
[2017-01-27 07:44] LABS: OVALOCYTES 1+
[2017-01-27 07:49] LABS: LARGE PLATELETS 1+
[2017-01-27 08:11] VITALS: BP 117/76
[2017-01-27] MEDS: POTASSIUM CHLORIDE 20 MEQ TAB.ER.PRT PO SCH (08:22)
[2017-01-27] MEDS: FERROUS SULFATE 325 MG TABLET PO SCH ×3 (08:22→17:10)
[2017-01-27 12:21] LABS: HEMOGLOBIN 8.9 g/dL (11.7-16.4)
[2017-01-27 13:22] LABS: DIFF TOTAL CELLS COUNTED 100 CELL DIFF
[2017-01-27 13:28] LABS: ANISOCYTOSIS 1+; HYPOCHROMIA 1+; VERIFY COUNTS? YES
[2017-01-27 14:46] VITALS: BP 112/73
[2017-01-27] MEDS: NICOTINE 7 MG/24 HR PATCH.TD24 TD SCH (17:10)
[2017-01-27 19:56] VITALS: BP 114/66
[2017-01-28 02:04] VITALS: BP 118/65
[2017-01-28] MEDS: HYDROcodone/APAP 5/325 TABLET PO PRN (06:28)
[2017-01-28 08:05] VITALS: BP 98/62
[2017-01-28] MEDS: FERROUS SULFATE 325 MG TABLET PO SCH ×3 (08:16→16:37)
[2017-01-28 10:57] LABS: BLOOD UREA NITROGEN 16 mg/dL (7-18)
[2017-01-28] MEDS ORDERED: FUROSEMIDE 20 MG/2 ML IV ONE (11:30)
[2017-01-28 14:39] VITALS: BP 118/86
[2017-01-28] MEDS: NICOTINE 7 MG/24 HR PATCH.TD24 TD SCH (16:37)
[2017-01-28 19:12] VITALS: BP 110/69
[2017-01-29 01:53] VITALS: BP 102/69
[2017-01-29 08:07] VITALS: BP 112/68
[2017-01-29] MEDS: POTASSIUM CHLORIDE 20 MEQ TAB.ER.PRT PO SCH (08:30)
[2017-01-29] MEDS: FERROUS SULFATE 325 MG TABLET PO SCH ×3 (08:30→16:49)
[2017-01-29] MEDS: FUROSEMIDE 20 MG/2 ML IV SCH (08:31)
[2017-01-29 13:59] VITALS: BP 105/56
[2017-01-29] MEDS: NICOTINE 7 MG/24 HR PATCH.TD24 TD SCH (16:49)
[2017-01-29 22:37] VITALS: BP 118/74
[2017-01-30 01:54] VITALS: BP 114/63
[2017-01-30] MEDS ORDERED: BUPIVACAINE/PF-EPI 0.5% 1:200K ONE (06:58)
[2017-01-30] MEDS ORDERED: BACITRACIN OINT 500U/GM, 15 GM ONE (06:58)
[2017-01-30] MEDS ORDERED: THROMBIN 5,000 UNIT VIAL TP ONE (06:59)
[2017-01-30] MEDS ORDERED: BACITRACIN 50,000 UNIT ONE (06:59)
[2017-01-30] MEDS: FUROSEMIDE 20 MG/2 ML IV SCH (08:41)
[2017-01-30] MEDS: FERROUS SULFATE 325 MG TABLET PO SCH ×4 (08:41→16:44)
[2017-01-30] MEDS: POTASSIUM CHLORIDE 20 MEQ TAB.ER.PRT PO SCH ×2 (08:41→08:42)
[2017-01-30 09:30] VITALS: BP 106/72
[2017-01-30] MEDS ORDERED: MIDAZOLAM 1 MG/ML, 2ML ONE (10:38)
[2017-01-30] MEDS ORDERED: FENTANYL PF 250 MCG/5ML ONE (10:38)
[2017-01-30 12:34] LABS: HCG UR OBC PASS
[2017-01-30] MEDS ORDERED: HYDROmorphone 1 MG/ML, 1ML IV PRN (13:00)
[2017-01-30] MEDS ORDERED: ONDANSETRON 2MG/ML, 2ML IVPush PRN (13:00)
[2017-01-30] MEDS ORDERED: ACETAMINOPHEN 325 MG TABLET PO PRN (13:00)
[2017-01-30] MEDS ORDERED: OXYcodone 5 MG/5 ML ORAL.SOL UDC PO PRN (13:00)
[2017-01-30] MEDS ORDERED: FENTANYL PF 100 MCG/2ML IV PRN (13:00)
[2017-01-30] MEDS ORDERED: ONDANSETRON 2MG/ML, 2ML ONE (13:08)
[2017-01-30] MEDS ORDERED: PROPOFOL 10 MG/ML, 20ML ONE (13:08)
[2017-01-30] MEDS ORDERED: GLYCOPYRROLATE 0.2MG/1ML ONE (13:08)
[2017-01-30] MEDS ORDERED: DEXAMETHASONE 4 MG/ML, 1ML ONE (13:08)
[2017-01-30] MEDS ORDERED: NEOSTIGMINE 1 MG/ML, 10ML ONE (13:08)
[2017-01-30] MEDS ORDERED: ROCURONIUM 10 MG/ML ONE (13:08)
[2017-01-30] MEDS ORDERED: BACITRACIN 50,000 UNIT IRRIG ONE (13:53)
[2017-01-30] MEDS: HYDROcodone/APAP 5/325 TABLET PO PRN (14:57)
[2017-01-30 15:01] VITALS: BP 115/73
[2017-01-30] MEDS: NICOTINE 7 MG/24 HR PATCH.TD24 TD SCH (16:44)
[2017-01-30 19:22] VITALS: BP 121/65
[2017-01-31 00:37] VITALS: BP 103/66
[2017-01-31] MEDS: HYDROcodone/APAP 5/325 TABLET PO PRN ×2 (01:02→14:06)
[2017-01-31 03:49] VITALS: BP 114/73
[2017-01-31 06:35] LABS: BLOOD UREA NITROGEN 24 mg/dL (7-18)
[2017-01-31 06:48] LABS: HEMOGLOBIN 10.1 g/dL (11.7-16.4)
[2017-01-31 06:52] VITALS: BP 115/72
[2017-01-31] MEDS: FERROUS SULFATE 325 MG TABLET PO SCH ×3 (09:35→16:22)
[2017-01-31] MEDS: POTASSIUM CHLORIDE 20 MEQ TAB.ER.PRT PO SCH (09:35)
[2017-01-31] MEDS: FUROSEMIDE 20 MG/2 ML IV SCH (09:41)
[2017-01-31 13:22] VITALS: BP 119/76
[2017-01-31] MEDS: NICOTINE 7 MG/24 HR PATCH.TD24 TD SCH (16:22)
[2017-01-31 19:39] VITALS: BP 108/73
[2017-02-01 02:10] VITALS: BP 113/73
[2017-02-01 07:53] VITALS: BP 107/69
[2017-02-01] MEDS: FERROUS SULFATE 325 MG TABLET PO SCH ×3 (08:00→17:00)
[2017-02-01 12:42] VITALS: BP 118/81
[2017-02-01] MEDS: MICAFUNGIN 100 MG in SODIUM CHLORIDE 0.9% 100 ML IV SCH (13:43)
[2017-02-01] MEDS: NICOTINE 7 MG/24 HR PATCH.TD24 TD SCH (16:00)
[2017-02-01 20:12] VITALS: BP 119/74
[2017-02-01] MEDS: HYDROcodone/APAP 5/325 TABLET PO PRN (20:35)
[2017-02-02 03:00] VITALS: BP 133/77
[2017-02-02 06:27] LABS: HEMOGLOBIN 8.5 g/dL (11.7-16.4)
[2017-02-02 06:37] LABS: ASPARTATE AMINO TRANSFERASE 42 U/L (15-37); BLOOD UREA NITROGEN 22 mg/dL (7-18)
[2017-02-02 07:07] VITALS: BP 122/74
[2017-02-02] MEDS: FERROUS SULFATE 325 MG TABLET PO SCH ×3 (07:35→16:03)
[2017-02-02] MEDS: MICAFUNGIN 100 MG in SODIUM CHLORIDE 0.9% 100 ML IV SCH (11:01)
[2017-02-02] MEDS: MORPHINE SULFATE 4 MG/ML, 1ML IVPush PRN (11:31)
[2017-02-02 12:30] VITALS: BP 125/71
[2017-02-02] MEDS: NICOTINE 7 MG/24 HR PATCH.TD24 TD SCH (16:03)
[2017-02-02 19:05] VITALS: BP 127/82
[2017-02-03 01:58] VITALS: BP 125/75
[2017-02-03 07:17] VITALS: BP 118/73
[2017-02-03] MEDS: LORazepam 0.5MG TABLET PO PRN (09:11)
[2017-02-03] MEDS: FERROUS SULFATE 325 MG TABLET PO SCH ×3 (09:11→15:59)
[2017-02-03] MEDS: HYDROcodone/APAP 5/325 TABLET PO PRN (09:11)
[2017-02-03] MEDS: FLUCONAZOLE 200 MG TABLET PO SCH (11:32)
[2017-02-03] MEDS: MORPHINE SULFATE 4 MG/ML, 1ML IVPush PRN (11:33)
[2017-02-03 13:27] VITALS: BP 109/74
[2017-02-03] MEDS: NICOTINE 7 MG/24 HR PATCH.TD24 TD SCH (16:00)
[2017-02-03 19:14] VITALS: BP 114/79
[2017-02-04 02:41] VITALS: BP 112/68
[2017-02-04 07:27] VITALS: BP 133/88
[2017-02-04] MEDS: FERROUS SULFATE 325 MG TABLET PO SCH ×3 (08:23→16:58)
[2017-02-04] MEDS: FLUCONAZOLE 200 MG TABLET PO SCH (08:23)
[2017-02-04 13:23] VITALS: BP 134/86
[2017-02-04] MEDS: NICOTINE 7 MG/24 HR PATCH.TD24 TD SCH (16:59)
[2017-02-04 18:53] VITALS: BP 125/79
[2017-02-05 02:15] VITALS: BP 111/77
[2017-02-05 07:43] VITALS: BP 135/79
[2017-02-05] MEDS: FLUCONAZOLE 200 MG TABLET PO SCH (09:01)
[2017-02-05] MEDS: FERROUS SULFATE 325 MG TABLET PO SCH ×2 (09:01→14:32)
[2017-02-05] MEDS: MORPHINE SULFATE 4 MG/ML, 1ML IVPush PRN (10:44)
[2017-02-05] MEDS ORDERED: FERR325T20 PO (13:36)
[2017-02-05] MEDS ORDERED: ACET325T14 PO (13:36)
[2017-02-05] MEDS ORDERED: FLUC200T PO (13:36)
[2017-02-05] MEDS ORDERED: ALPR0.25 PO (13:36)
[2017-02-05 14:09] VITALS: BP 119/77
== END 2017-02-05 16:14 | DRG 853 ==
LOC: ED 09:38 → EDIP 09:55 → 4WST 12:03 → 4NOR 01-02 16:53
PROVIDERS: ADMIT Internal Medicine; ATTEND Internal Medicine
PROC: 0T9B70Z Drainage of Bladder with Drainage Device, Via Natural or Artificial Opening (ICD-10-PCS; 2016-12-28)
PROC: 0K9 Muscles, Drainage (ICD-10-PCS; 2016-12-29)
PROC: 0JB50ZZ Excision of Left Neck Subcutaneous Tissue and Fascia, Open Approach (ICD-10-PCS; 2017-01-01)
PROC: 0W9630Z Drainage of Neck with Drainage Device, Percutaneous Approach (ICD-10-PCS; 2017-01-01)
PROC: B546ZZA Ultrasonography of Right Subclavian Vein, Guidance (ICD-10-PCS; 2017-01-08)
PROC: B5161ZA Fluoroscopy of Right Subclavian Vein using Low Osmolar Contrast, Guidance (ICD-10-PCS; 2017-01-08)
PROC: 05H533Z Insertion of Infusion Device into Right Subclavian Vein, Percutaneous Approach (ICD-10-PCS; 2017-01-08)
PROC: 0WJ63ZZ Inspection of Neck, Percutaneous Approach (ICD-10-PCS; 2017-01-10)
PROC: 0K920ZZ Drainage of Right Neck Muscle, Open Approach (ICD-10-PCS; 2017-01-14)
PROC: 0K930ZZ Drainage of Left Neck Muscle, Open Approach (ICD-10-PCS; principal; 2017-01-14 14:30)
PROC: 0KB30ZZ Excision of Left Neck Muscle, Open Approach (ICD-10-PCS; 2017-01-30)
DX: A41.9 Sepsis, unspecified organism (principal); E43 Unspecified severe protein-calorie malnutrition; E87.1 Hypo-osmolality and hyponatremia; M60.08 Infective myositis, other site; B49 Unspecified mycosis; L03.221 Cellulitis of neck; E87.6 Hypokalemia; R07.89 Other chest pain; B85.0 Pediculosis due to Pediculus humanus capitis; N30.90 Cystitis, unspecified without hematuria; B96.20 Unspecified Escherichia coli [E. coli] as the cause of diseases classified elsewhere; L65.9 Nonscarring hair loss, unspecified; E04.2 Nontoxic multinodular goiter; D50.9 Iron deficiency anemia, unspecified; N18.2 Chronic kidney disease, stage 2 (mild); E83.42 Hypomagnesemia; F17.210 Nicotine dependence, cigarettes, uncomplicated; Z59.0 Homelessness; Z87.442 Personal history of urinary calculi; Z71.6 Tobacco abuse counseling; Z91.19 Patient's noncompliance with other medical treatment and regimen; Z68.21 Body mass index [BMI] 21.0-21.9, adult
CPT/HCPCS: 10160; 36415; 36569; 70491; 70543; 70553; 71010; 71275; 75989; 76770; 76937; 76942; 77001; 80048; 80053; 80061; 80202; 80307; 81001; 81025; 82040; 82550; 82607; 82746; 83540; 83550; 83605; 83690; 83735; 84132; 84439; 84443; 84484; 85014; 85018; 85025; 85379; 85610; 85651; 85730; 86140; 86850; 86900; 86923; 87015; 87040; 87070; 87075; 87077; 87086; 87102; 87106; 87116; 87176; 87186; 87205; 87206; 88304; 93005; 93306; 93970; 96365; 96366; 96368; 96372; A9585; C1713; J0690; J0696; J0878; J1100; J1170; J1650; J2248; J2250; J2270; J2405; J2543; J2704; J2710; J2997; J3010; J3370; J3480; J3490; Q9967; C1729; C1751; C1769; J0330; J1940; J2060; J2310; J2370; J3475; J7030; J7040; J7050

== ENCOUNTER 2017-03-25 14:22 | Emergency (ER) | payer MEDICAID ==
[~2017-03-25] VITALS: Ht 162.6 cm; Wt 70.8 kg
[~2017-03-25 14:22] MED LIST: ACET325T14 PO; ALPR0.25 PO; FERR325T20 PO; FLUC200T PO
[2017-03-25] MEDS ORDERED: SODIUM CHLORIDE FLUSH 10ML SYR IVF ONE (15:00)
[2017-03-25 15:02] LABS: BLOOD UREA NITROGEN 16 mg/dL (7-18)
[2017-03-25 19:52] VITALS: BP 108/60
== END 2017-03-25 19:57 | disposition home or self-care (01) ==
LOC: ED 18:35
DX: R60.9 Edema, unspecified (principal); F17.200 Nicotine dependence, unspecified, uncomplicated
CPT/HCPCS: 36415; 70490; 80048; 82040; 83605; 85025; 87040

== ENCOUNTER 2020-07-22 09:49 | Emergency (ER) | payer MEDICAID ==
[~2020-07-22] VITALS: Ht 170.2 cm; Wt 86.3 kg
[~2020-07-22 09:49] MED LIST changes: +FERR325T18 PO; -FERR325T20 PO
[2020-07-22 10:07] VITALS: BP 134/59
[2020-07-22] MEDS ORDERED: HYDROcodone/APAP 5/325 TABLET PO ONE (10:30)
[2020-07-22] MEDS ORDERED: CLINDAMYCIN 300 MG CAPSULE ONE (10:43)
[2020-07-22] MEDS ORDERED: HYDROcodone/APAP 5/325 TABLET ONE (10:44)
--- NOTE | 2020-07-22 10:52 | NUR ---
meds per dec [facility]. as
[2020-07-22] MEDS ORDERED: CLINDAMYCIN 300 MG CAPSULE PO ONE (11:00)
--- NOTE | 2020-07-22 11:10 | NUR ---
pt states pain improved since medicated. discharge given and ambulated to discharge window steady gait.
== END 2020-07-22 11:33 | disposition home or self-care (01) ==
LOC: ED 10:32
DX: K04.7 Periapical abscess without sinus (principal); K02.9 Dental caries, unspecified
CPT/HCPCS: 99283

== ENCOUNTER 2020-07-23 14:04 | Emergency (ER) | payer MEDICAID ==
[2020-07-23 14:17] VITALS: BP 130/82
--- NOTE | 2020-07-23 17:25 | NUR ---
PT CALLED FOR REPEAT VITAS. NO ANSWER WHEN CALLED @ [id number].
--- NOTE | 2020-07-23 18:06 | NUR ---
NA X 2
--- NOTE | 2020-07-23 18:41 | NUR ---
NA X 3
== END 2020-07-23 18:43 | disposition left against medical advice (07) ==
LOC: ED 18:35
DX: K08.89 Other specified disorders of teeth and supporting structures (principal)
CPT/HCPCS: 99281

== ENCOUNTER 2020-07-24 12:12 | Inpatient (IN) | payer MEDICAID ==
[~2020-07-24] VITALS: Ht 172.7 cm; Wt 93.5 kg
--- NOTE | 2020-07-24 12:33 | NUR ---
PT HERE FOR UPPER LEFT DENTAL PAIN, HAS BEEN SEEN BY THIS ED X 2 DAYS AND GIVEN DENTAL REFERRAL AND ABX.
--- NOTE | 2020-07-24 13:19 | NUR ---
PER DR. EMERSON, ORAL SURGEON WILL BE TAKING PATIENT TO THE OR
[2020-07-24] MEDS ORDERED: AMPICILLIN/SULBACTAM 3 GM in SODIUM CHLORIDE 0.9% 100 ML IV ONE (13:30)
[2020-07-24 13:36] LABS: BASOPHILS # (AUTO) 0.04 x10^3/uL (0-0.1); BASOPHILS % (AUTO) 0 % (0-1); EOSINOPHILS # (AUTO) 0.18 x10^3/uL (0-0.4); EOSINOPHILS % (AUTO) 2 % (1-7); LYMPHOCYTES # (AUTO) 2.47 x10^3/uL (1-3.4); LYMPHOCYTES % (AUTO) 25 % (22-44); MD NO; MEAN CORPUSCULAR HEMOGLOBIN 30.7 pg (27.0-34.8); MEAN CORPUSCULAR HGB CONC 32.2 g/dL (32.4-35.8); MEAN CORPUSCULAR VOLUME 95.3 fL (80-100); MEAN PLATELET VOLUME 10.9 fL (7.4-10.4); MONOCYTES # (AUTO) 0.64 x10^3/uL (0.2-0.8); MONOCYTES % (AUTO) 6 % (2-9); NEUTROPHILS # (AUTO) 6.65 x10^3/uL (1.8-6.8); NEUTROPHILS % (AUTO) 67 % (42-75); PLATELET COUNT 157 x10^3/uL (130-400); RED BLOOD COUNT 4.76 x10^6/uL (3.82-5.3); RED CELL DISTRIBUTION WIDTH 13.2 % (9.6-15.2)
[2020-07-24 13:46] LABS: ALBUMIN 3.9 g/dL (3.4-5.0); ANION GAP 5 mmol/L (5-15); CALCIUM 9.4 mg/dL (8.5-10.1); CHLORIDE 111 mmol/L (98-107); CREATININE 0.89 mg/dL (0.55-1.02)
[2020-07-24] MEDS ORDERED: SODIUM CHLORIDE 0.9% 1,000 ML IV ONE (14:00)
[2020-07-24] MEDS ORDERED: HYDROmorphone 1 MG/ML, 1ML INJ ONE (15:47)
[2020-07-24] MEDS ORDERED: ONDANSETRON 2MG/ML, 2ML ONE ×3 (15:48→18:55)
[2020-07-24] MEDS ORDERED: HYDROmorphone 2 MG/ML, 1ML IVPush PRN ×2 (16:00→17:00)
[2020-07-24] MEDS ORDERED: ONDANSETRON 2MG/ML, 2ML IVPush ONE (16:00)
--- NOTE | 2020-07-24 16:51 | NUR ---
Awaiting surgical room for patient.
[2020-07-24] MEDS ORDERED: ACETAMINOPHEN 325 MG TABLET PO PRN ×2 (17:00→18:30)
[2020-07-24] MEDS ORDERED: ONDANSETRON 2MG/ML, 2ML IVPush PRN ×2 (17:00→18:30)
[2020-07-24] MEDS ORDERED: BISACODYL 10 MG SUPP PR PRN (17:00)
[2020-07-24] MEDS ORDERED: MELATONIN 5 MG TABLET PO PRN (17:00)
[2020-07-24] MEDS ORDERED: HYDROcodone/APAP 5/325 TABLET PO PRN (17:00)
[2020-07-24] MEDS ORDERED: LABETALOL 5MG/ML, 20ML IVPush PRN (17:00)
[2020-07-24] MEDS ORDERED: ONDANSETRON ODT 4 MG PO PRN (17:00)
--- NOTE | 2020-07-24 17:02 | NUR ---
RECEIVED REPORT FROM JOSEF HERNANDEZ, PLAN OF CARE DISCUSSED
--- NOTE | 2020-07-24 17:48 | NUR ---
REPORT TO SURGERY RN, PLAN OF CARE DISCUSSED
[2020-07-24] MEDS ORDERED: LIDOCAINE 1%-EPI 1:100K, 20ML ONE (17:49)
[2020-07-24] MEDS ORDERED: NEOSPORIN OINT, 15GM ONE (17:50)
[2020-07-24] MEDS ORDERED: MIDAZOLAM 1 MG/ML, 2ML ONE (18:09)
[2020-07-24] MEDS ORDERED: FENTANYL PF 100 MCG/2ML ONE (18:09)
[2020-07-24] MEDS ORDERED: OXYcodone 5 MG/5 ML ORAL.SOL UDC PO PRN (18:30)
[2020-07-24] MEDS: AMPICILLIN/SULBACTAM 3 GM in SODIUM CHLORIDE 0.9% 100 ML IV SCH (18:30)
[2020-07-24] MEDS ORDERED: PROMETHAZINE 25 MG/ML, 1ML IVPush PRN (18:30)
[2020-07-24] MEDS ORDERED: FENTANYL PF 100 MCG/2ML IV PRN (18:30)
[2020-07-24] MEDS ORDERED: HYDROmorphone 1 MG/ML, 1ML INJ IVPush PRN (18:30)
[2020-07-24] MEDS ORDERED: PROMETHAZINE 25 MG SUPP PR PRN (18:30)
[2020-07-24] MEDS ORDERED: SUCCINYLCHOLINE 20 MG/ML, 10ML ONE (18:55)
[2020-07-24] MEDS ORDERED: PROPOFOL 10 MG/ML, 20ML ONE (18:55)
[2020-07-24] MEDS ORDERED: CEFAZOLIN 1,000 MG ONE (18:55)
[2020-07-24] MEDS ORDERED: NEOSTIGMINE 1 MG/ML, 10ML ONE (18:55)
[2020-07-24] MEDS ORDERED: GLYCOPYRROLATE 0.2MG/1ML, 5ML ONE (18:55)
[2020-07-24] MEDS ORDERED: ROCURONIUM 10MG/ML,5ML ONE (18:55)
[2020-07-24] MEDS ORDERED: DEXAMETHASONE 4 MG/ML, 1ML ONE (18:55)
[2020-07-24] MEDS ORDERED: MEPERIDINE/PF 25MG/ML,1ML ONE (19:01)
[2020-07-24] MEDS: FAMOTIDINE 20 MG TABLET PO SCH (21:00)
[2020-07-24 21:13] VITALS: BP 109/57
[2020-07-25 00:53] VITALS: BP 108/63
[2020-07-25] MEDS: AMPICILLIN/SULBACTAM 3 GM in SODIUM CHLORIDE 0.9% 100 ML IV SCH ×3 (01:18→12:18)
[2020-07-25] MEDS: LACTATED RINGERS 1,000 ML IV SCH ×2 (02:30→12:18)
[2020-07-25 04:14] VITALS: BP 99/52
[2020-07-25 05:32] LABS: BASOPHILS % (AUTO) 0 % (0-1); EOSINOPHILS % (AUTO) 0 % (1-7); LYMPHOCYTES # (AUTO) 0.75 x10^3/uL (1-3.4); LYMPHOCYTES % (AUTO) 11 % (22-44); MD NO; MEAN CORPUSCULAR HEMOGLOBIN 30.8 pg (27.0-34.8); MEAN CORPUSCULAR HGB CONC 32.3 g/dL (32.4-35.8); MEAN CORPUSCULAR VOLUME 95.2 fL (80-100); MEAN PLATELET VOLUME 11.5 fL (7.4-10.4); MONOCYTES # (AUTO) 0.15 x10^3/uL (0.2-0.8); MONOCYTES % (AUTO) 2 % (2-9); NEUTROPHILS # (AUTO) 5.85 x10^3/uL (1.8-6.8); NEUTROPHILS % (AUTO) 87 % (42-75); PLATELET COUNT 137 x10^3/uL (130-400); RED BLOOD COUNT 4.11 x10^6/uL (3.82-5.3)
[2020-07-25 05:36] LABS: ALBUMIN 3.1 g/dL (3.4-5.0); ANION GAP 6 mmol/L (5-15); CALCIUM 8.8 mg/dL (8.5-10.1); CHLORIDE 111 mmol/L (98-107)
[2020-07-25 05:40] LABS: ALANINE AMINOTRANSFERASE 12 U/L (12-78); ALKALINE PHOSPHATASE 48 U/L (45-117); BILIRUBIN,TOTAL 0.5 mg/dL (0.2-1.0); CREATININE 0.74 mg/dL (0.55-1.02); TOTAL PROTEIN 6.8 g/dL (6.4-8.2)
[2020-07-25 08:14] VITALS: BP 111/52
[2020-07-25] MEDS: FAMOTIDINE 20 MG TABLET PO SCH (08:45)
[2020-07-25] MEDS ORDERED: SENNA/DOCUSATE TABLET PO SCH (09:00)
[2020-07-25] MEDS ORDERED: NICOTINE 14MG/24 HR PATCH.TD24 TD SCH (09:00)
[2020-07-25] MEDS ORDERED: NICO-486 TD (10:39)
[2020-07-25] MEDS ORDERED: AMOX1TAB64 PO (10:39)
[2020-07-25] MEDS ORDERED: Senna/Docusate PO (10:39)
[2020-07-25] MEDS ORDERED: HYDR-3237 PO (10:39)
[2020-07-25] MEDS ORDERED: ONDA4TAB13 PO (10:39)
[2020-07-25 12:50] VITALS: BP 99/41
[2020-07-25 13:00] VITALS: BP 104/50
== END 2020-07-25 13:50 | disposition home or self-care (01) | DRG 137 ==
LOC: ED 13:11 → SUATTDRO 14:56 → EDIP 16:41 → 4NE 20:00 → DCLOUNGE 07-25 13:40
PROVIDERS: ADMIT Internal Medicine; ATTEND Internal Medicine
PROC: 0CDXXZ1 Extraction of Lower Tooth, Multiple, External Approach (ICD-10-PCS; 2020-07-24)
PROC: 0W930ZZ Drainage of Oral Cavity and Throat, Open Approach (ICD-10-PCS; 2020-07-24)
PROC: 0CDWXZ1 Extraction of Upper Tooth, Multiple, External Approach (ICD-10-PCS; principal; 2020-07-24 18:00)
DX: K04.7 Periapical abscess without sinus (principal); L03.211 Cellulitis of face; F17.210 Nicotine dependence, cigarettes, uncomplicated; J32.9 Chronic sinusitis, unspecified; K02.9 Dental caries, unspecified; K05.10 Chronic gingivitis, plaque induced; Z82.49 Family history of ischemic heart disease and other diseases of the circulatory system; Z87.440 Personal history of urinary (tract) infections; Z20.828 Contact with and (suspected) exposure to other viral communicable diseases
CPT/HCPCS: 36415; 70100; 71045; 80048; 80053; 82040; 83735; 85025; 87635; 93005; G0378; J0295; J0690; J1100; J1170; J2250; J2405; J2704; J2710; J3010; J3490; J0330; J7030

== ENCOUNTER 2020-07-29 00:15 | Emergency (ER) | payer MEDICAID ==
[~2020-07-29] VITALS: Ht 172.7 cm; Wt 86.6 kg
[~2020-07-29 00:15] MED LIST changes: +AMOX1TAB64 PO; +HYDR-3237 PO; +NICO-486 TD; +ONDA4TAB13 PO; +Senna/Docusate PO
[2020-07-29 00:23] VITALS: BP 110/54
== END 2020-07-29 01:40 ==
LOC: ED 01:34
DX: B37.9 Candidiasis, unspecified (principal)
CPT/HCPCS: 99283

== ENCOUNTER 2021-05-31 01:57 | Day surgery (SDC) | payer MEDICAID ==
[~2021-05-31] VITALS: Ht 172.7 cm; Wt 85.0 kg
--- NOTE | 2021-05-31 01:59 | NUR ---
INITIAL PT CONTACT. PT PRESENTS TO ED VIA EMS FROM HOME FOR NON TRAMATIC LOWER BACK PAIN/R FLANK PAIN. PT DENIES ANY URINARY S/S. 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 AWAITING ERP
[2021-05-31 02:39] LABS: MICROSCOPIC AUTO
[2021-05-31 02:39] LABS: BASOPHILS % (AUTO) 0 % (0-1); EOSINOPHILS % (AUTO) 4 % (1-7); LYMPHOCYTES % (AUTO) 8 % (22-44); MEAN CORPUSCULAR HEMOGLOBIN 30.6 pg (27.0-34.8); MEAN CORPUSCULAR HGB CONC 33.3 g/dL (32.4-35.8); MEAN PLATELET VOLUME 11.2 fL (7.4-10.4); MONOCYTES % (AUTO) 0 % (2-9); NEUTROPHILS % (AUTO) 87 % (42-75); PLATELET COUNT 96 x10^3/uL (130-400); RED CELL DISTRIBUTION WIDTH 13.6 % (9.6-15.2)
[2021-05-31] MEDS ORDERED: CEFDINIR 300 MG CAPSULE ONE (02:47)
[2021-05-31] MEDS ORDERED: IBUPROFEN 800 MG TABLET ONE (02:47)
[2021-05-31] MEDS ORDERED: METHOCARBAMOL 750 MG TABLET ONE (02:47)
[2021-05-31 02:50] LABS: ALANINE AMINOTRANSFERASE 16 U/L (12-78); ALBUMIN 3.5 g/dL (3.4-5.0); ANION GAP 6 mmol/L (5-15); CHLORIDE 111 mmol/L (98-107); CREATININE 1.01 mg/dL (0.55-1.02)
[2021-05-31 02:55] LABS: ALKALINE PHOSPHATASE 48 U/L (45-117); BILIRUBIN,TOTAL 0.6 mg/dL (0.2-1.0); TOTAL PROTEIN 6.9 g/dL (6.4-8.2)
[2021-05-31] MEDS ORDERED: METHOCARBAMOL 750 MG TABLET PO ONE (03:00)
[2021-05-31] MEDS ORDERED: IBUPROFEN 800 MG TABLET PO ONE (03:00)
[2021-05-31] MEDS ORDERED: CEFDINIR 300 MG CAPSULE PO ONE (03:00)
--- NOTE | 2021-05-31 04:02 | NUR ---
PT SITTING UPRIGHT ON SAKINA ODOM, VSS. PT REPORT IMPROVED PAIN FOLLOWING SENIOR OPERATOR. NO ADDITIONAL NEEDS AT THIS TIME. CALL LIGHT AND PERSONAL BELONGINGS WITHIN REACH.
--- NOTE | 2021-05-31 06:15 | NUR ---
STRAIGHT CATH PERFORMED PER ERP ORDER. PT TOELRATED WELL. SAMPLE WALKED TO LAB BY THIS RN. PT DENIES ANY ADDITIONAL NEEDS AT THIS TIME. CALL LIGHT AND PERSONAL BELONGINGS WITHIN REACH.
[2021-05-31 06:23] LABS: MICROSCOPIC INDICATED
--- NOTE | 2021-05-31 06:52 | NUR ---
REPORT TO FLETCHER HERNANDEZ
--- NOTE | 2021-05-31 07:11 | NUR ---
REPORT RECEIVED FROM CLARA HERNANDEZ. PT SLEEPING IN BED, RESPS EVEN AND UNLABORED, SAKINA. AWAITING UROLOGY AND DISPO.
--- NOTE | 2021-05-31 07:27 | NUR ---
Note herlinda in EDM - 05/31/21 at 0729 by FRANCISCA pt BP reading low on automatic cuff, BP taken manually and reads same, other VSS. MD aware, per MD, hold off on PIV and fluid bolus until urology calls.
[2021-05-31] MEDS ORDERED: CEFTRIAXONE 1,000 MG in DEXTROSE 5% 50 ML IVPB ONE (07:30)
[2021-05-31] MEDS: SODIUM CHLORIDE 0.9% 1,000ML IVBOLUS ONE ×2 (08:00→09:00)
--- NOTE | 2021-05-31 08:00 | NUR ---
per MD order, PIV placed, fluids infusing, ABX infusing after BC drawn x2. pt tolerating well, BP improving to SBP 90s. pt a&o, resps even and unlabored, nadn.
--- NOTE | 2021-05-31 08:02 | NUR ---
covid swab collected and walked to lab
--- NOTE | 2021-05-31 08:28 | NUR ---
preceptor RN note: report given to WRAPPING CLERK Beverley including last PO intake. pt awake, alert and oreinted. speech clear. pt has no complaint at this time.
[2021-05-31] MEDS ORDERED: FENTANYL PF 100 MCG/2ML ONE (08:54)
[2021-05-31] MEDS ORDERED: MIDAZOLAM 1 MG/ML, 2ML ONE (08:54)
[2021-05-31] MEDS ORDERED: ONDANSETRON 2MG/ML, 2ML IVPush PRN (09:00)
[2021-05-31] MEDS ORDERED: FENTANYL PF 100 MCG/2ML IV PRN (09:00)
[2021-05-31] MEDS ORDERED: hydrALAzine 20 MG/ML, 1ML IV PRN (09:00)
[2021-05-31] MEDS ORDERED: LABETALOL 5MG/ML, 20ML IV PRN (09:00)
[2021-05-31] MEDS ORDERED: EPHEDRINE 50 MG/ML, 1ML IVPush PRN (09:00)
[2021-05-31] MEDS ORDERED: ACETAMINOPHEN 325 MG TABLET PO PRN (09:00)
[2021-05-31] MEDS ORDERED: MEPERIDINE/PF 25MG/0.5ML IVPush PRN (09:00)
[2021-05-31] MEDS ORDERED: HYDROmorphone 1 MG/ML, 1ML INJ IVPush PRN (09:00)
[2021-05-31] MEDS ORDERED: OXYcodone 5 MG/5 ML ORAL.SOL UDC PO PRN (09:00)
[2021-05-31] MEDS ORDERED: PROMETHAZINE 25 MG/ML, 1ML IVPush PRN (09:00)
[2021-05-31] MEDS ORDERED: OMNIPAQUE 350 MG/ML, 50 ML BOTTLE ONE (09:27)
--- NOTE | 2021-05-31 09:34 | NUR ---
PT AMBULATORY TO RESTROOM WITH STEADY GAIT. PT A&O, RESPS EVEN AND UNLABORED, NADN.
[2021-05-31] MEDS ORDERED: SODIUM CHLORIDE 0.9% 1,000 ML IV ONE ×2 (10:00→12:00)
--- NOTE | 2021-05-31 10:00 | NUR ---
sbp steady in 802-90s, pt became sinus bradycardic breifly with HR high 30s, MD aware, orders received. maintenance fluids infusing, pt being taken to OR at this time. Addendum: 05/31/21 at 1001 by AMAHDAVI sbp remains in 80s-90s, pt became sinus bradycardic breifly with HR high 30s, aware, orders received. maintenance fluids infusing, pt being taken to OR at this time.
[2021-05-31] MEDS ORDERED: CHLORHEXIDINE 15 ML UDC ONE (10:08)
[2021-05-31] MEDS ORDERED: PROPOFOL 10 MG/ML, 20ML ONE (10:13)
[2021-05-31] MEDS ORDERED: DEXAMETHASONE 4 MG/ML, 1ML ONE (10:13)
[2021-05-31] MEDS ORDERED: ONDANSETRON 2MG/ML, 2ML ONE (10:13)
[2021-05-31] MEDS ORDERED: CEFAZOLIN 1,000 MG ONE (10:13)
[2021-05-31] MEDS ORDERED: CHLORHEXIDINE 15 ML UDC PO ONE (10:30)
[2021-05-31] MEDS ORDERED: LIDOCAINE-MPF 2% ,5ML ONE (11:14)
[2021-05-31] MEDS ORDERED: SODIUM CHLORIDE 0.9% PF 10ML ONE (11:14)
[2021-05-31] MEDS ORDERED: EPHEDRINE 50 MG/ML, 1ML ONE (11:26)
[2021-05-31] MEDS ORDERED: SODIUM CHLORIDE FLUSH 10ML SYR IVF PRN (12:30)
[2021-05-31 13:13] VITALS: BP 100/60
[2021-05-31 15:37] VITALS: BP 100/60
[2021-05-31] MEDS ORDERED: HYDR-2214 PO (15:42)
[2021-05-31] MEDS ORDERED: SULF1TAB24 PO (15:42)
[2021-05-31] MEDS ORDERED: TAMS-11 PO (15:42)
[2021-05-31] MEDS ORDERED: OXYB10TA6 PO (15:42)
[2021-05-31] MEDS ORDERED: POTASSIUM CHLORIDE 20 MEQ TAB.ER.PRT PO ONE (16:00)
[2021-06-01] MEDS ORDERED: HYDR-2214 PO (10:58)
== END 2021-05-31 18:30 | disposition home or self-care (01) ==
LOC: OR 08:20 → EDSTATUS 11:00 → UNDOADMIN 11:15 → OR 11:15 → ORIP 11:15 → 4NE 13:19 → OR 18:30 → UNDODISIN 18:30
PROVIDERS: ATTEND Student in an Organized Health Care Education/Training Program
DX: N13.2 Hydronephrosis with renal and ureteral calculous obstruction (principal); F17.210 Nicotine dependence, cigarettes, uncomplicated; Z20.822 Contact with and (suspected) exposure to COVID-19; Z79.891 Long term (current) use of opiate analgesic; Z79.899 Other long term (current) drug therapy; Z87.442 Personal history of urinary calculi; Z82.49 Family history of ischemic heart disease and other diseases of the circulatory system
CPT/HCPCS: 36415; 52356; 74018; 74176; 76770; 80053; 81001; 82360; 83605; 83690; 84703; 85025; 87040; 87077; 87086; 87186; 87635; 88300; 93005; 99285; C1769; C2617; J0690; J0696; J1100; J2250; J2405; J2704; J3010; J7030; 76000; G0378; Q9967

== ENCOUNTER 2021-06-08 22:30 | Emergency (ER) | payer MEDICAID ==
[~2021-06-08] VITALS: Ht 172.7 cm; Wt 91.0 kg
[~2021-06-08 22:30] MED LIST changes: +HYDR-2214 PO; +OXYB10TA6 PO; +SULF1TAB24 PO; +TAMS-11 PO
[2021-06-08 22:36] VITALS: BP 111/90
[2021-06-08] MEDS ORDERED: MAALOX/HYOSCYAMINE/LIDOCAINE 45 ML BTL PO ONE (23:00)
[2021-06-08] MEDS ORDERED: MAALOX/HYOSCYAMINE/LIDOCAINE 45 ML BTL ONE (23:56)
[2021-06-09 00:25] LABS: BASOPHILS % (AUTO) 1 % (0-1); EOSINOPHILS % (AUTO) 5 % (1-7); LYMPHOCYTES % (AUTO) 30 % (22-44); MEAN CORPUSCULAR HEMOGLOBIN 31.4 pg (27.0-34.8); MEAN CORPUSCULAR HGB CONC 34.4 g/dL (32.4-35.8); MONOCYTES % (AUTO) 7 % (2-9); NEUTROPHILS % (AUTO) 57 % (42-75); PLATELET COUNT 156 x10^3/uL (130-400); RED BLOOD COUNT 4.46 x10^6/uL (3.82-5.3); RED CELL DISTRIBUTION WIDTH 13.7 % (9.6-15.2)
--- NOTE | 2021-06-09 00:30 | NUR ---
pt presents to the ed after having stents placed for her kidney stones on 05/31/21. pt states she has not been able to have a complete bm since her surgery and is now spitting up foam. pt in gown, resting on [facility]
[2021-06-09 00:34] LABS: ALANINE AMINOTRANSFERASE 30 U/L (12-78); ALBUMIN 3.7 g/dL (3.4-5.0); ANION GAP 5 mmol/L (5-15); CALCIUM 8.9 mg/dL (8.5-10.1); CHLORIDE 109 mmol/L (98-107); CREATININE 1.04 mg/dL (0.55-1.02)
[2021-06-09 00:38] LABS: ALKALINE PHOSPHATASE 49 U/L (45-117); BILIRUBIN,TOTAL 0.4 mg/dL (0.2-1.0); TOTAL PROTEIN 7.5 g/dL (6.4-8.2)
--- NOTE | 2021-06-09 01:24 | NUR ---
pt resting on gurney, denies needs at this time.
--- NOTE | 2021-06-09 01:57 | NUR ---
Patient given discharge instructions and they have confirmed that they understand the instructions. Patient ambulatory with steady gait.
== END 2021-06-09 02:00 | disposition home or self-care (01) ==
LOC: ED 23:30
DX: K21.00 Gastro-esophageal reflux disease with esophagitis, without bleeding (principal); R05 Cough; F17.200 Nicotine dependence, unspecified, uncomplicated
CPT/HCPCS: 36415; 74021; 80053; 83690; 84703; 85025; 99284